=== PATIENT | female | born 1990 | race Caucasian/White ===

== ENCOUNTER 2019-11-30 21:48 | Emergency (ER) | payer BC ==
[~2019-11-30] VITALS: Ht 172.7 cm; Wt 56.8 kg
[~2019-11-30 21:48] MED LIST: KETOROLAC10 MG PO; LOESTRIN 21 1.51 TAB PO; ZOFRAN 4MG T4 MG/TAB PO
[2019-11-30 21:51] VITALS: TEMP 98
[2019-11-30] MEDS ORDERED: ADDERALL XR 10M10 MG PO (22:00)
[2019-11-30] MEDS ORDERED: LESSINA 28 0.021 TAB PO (22:00)
[2019-11-30 23:44] VITALS: BP 116/75; PULSE 61
== END 2019-11-30 23:44 | disposition home or self-care (01) ==
LOC: COL.ER 21:48
DX: G43.909 Migraine, unspecified, not intractable, without status migrainosus (principal)
CPT/HCPCS: J1885; J2175; J2550

== ENCOUNTER → 2020-06-10 | Outpatient (CLI) | payer BC ==
[~2020-06-10] MED LIST changes: +ADDERALL XR 10M10 MG PO; +LESSINA 28 0.021 TAB PO
== END ==
LOC: COL.RAD 13:15
DX: M75.41 Impingement syndrome of right shoulder (principal); M75.21 Bicipital tendinitis, right shoulder; M67.813 Other specified disorders of tendon, right shoulder
CPT/HCPCS: A9585; Q9967